=== PATIENT | female | born 1950 | race Two or more races ===

== ENCOUNTER 2016-08-15 12:01 | Emergency (ER) | payer MEDICARE ==
[2016-08-15 12:08] VITALS: TEMP 98.1; BMI 27.8
[2016-08-15] MEDS ORDERED: Albuterol/Ipratropium Neb 3 ML NEB NEB ONE (12:22)
[2016-08-15] MEDS ORDERED: METHYLPREDNISOLONE 125 MG/2 ML VIAL IM ONE (12:22)
--- NOTE | 2016-08-15 12:26 | EDPRACDOC ---
- General Information Chief Complaint: Flu-Like Symptoms Stated Complaint: COLD SYMPTOMS C/O WEAKNESS Time Seen by Provider: 08/15/16 12:14 Information Source: Patient Mode Of Arrival: Car Home Medications: Home Medications Albuterol Sulfate [Proair Respiclick] 90 mcg IH QID #1 aer.pow.ba 08/15/16 Azithromycin [Zithromax] 250 mg PO DAILY #6 tablet 08/15/16 Benzonatate [Tessalon] 200 mg PO TID #20 per 08/15/16 Methylprednisolone [Medrol] 4 mg PO DAILY #1 tab.ds.pk 08/15/16 Allergies/Adverse Reactions: Allergies Allergy/AdvReac Type Severity Reaction Status Date / Time diazepam [From Valium] Allergy Anxiety Verified 08/15/16 12:08 - History of Present Illness Onset: 4 DAYS HPI: PT PRESENTS WITH COUGH, CONGESTION, SHOB THAT SHE STATES HAS BEEN ONGOING FOR SEVERAL DAYS. STATES SHE HAS BEEN TRAVELING FOR THE PAST SEVERAL DAYS. DENIES FEVER, CHILLS, NAUSEA OR VOMITING. Shortness of Breath: Mild Relevant History of: Reports: None Cough: Reports: Non-productive Rhinorrhea: Reports: Clear Fever Severity/Quality: Reports: no fever Ear Symptoms: Reports: Earache Oral Intake: Decreased Urinary Output: Normal ED Past Medical History - History Reviewed Yes Nurses notes reviewed and agree except as marked - Patient Medical History Surgical History: Reports: Tonsillectomy/Adnoidectomy EDM Review of Systems - Review of Systems ROS Negative Except as Marked: Yes All systems reviewed and were negative except as marked - Physical Exam Constitutional: Alert Oriented to: Time, Person, Place Last recorded Vital Signs: Last Vital Signs Temp 98.1 F 08/15/16 12:03 Pulse 83 08/15/16 12:03 Resp 20 08/15/16 12:03 BP 190/77 H 08/15/16 12:03 Pulse Ox 98 08/15/16 12:03 Oxygen Pulse Oxygen Saturation 98 O2 Device Room Air Oxygen Flow Rate Fraction of Inspired Oxygen ( FIO2) - HEENT Head: Normal ( normocephalic) Eye Exam: Normal (PERRL, EOMI, Sclera white) Oropharynx: Normal (Pharynx:Moist without exudate,Gums-no swelling) Tympanic Membrane: Redness Nose: No Symptoms Reported (septum midline) Neck: Normal (FROM, trachea at midline) - Respiratory/Cardiovascular Respiratory: Rhonchi, Wheezes Cardiovascular: Normal (RRR without murmur, gallop or rub) - GI Auscultation: Normal (NABS) Palpation: Normal (Soft,No rebound or guarding, non distended) Tenderness: Non tender Figueroa's Sign: Negative Rectal Exam: Deferred - Musculoskeletal Back: Normal (Non-Tender) Extremities: Normal (Normal tone, Pulses 2+ No cyanosis or edema, FROM) - Integumentary Skin: Normal, Warm, Dry Lymphatics: Normal (no adenopathy) - Neurologic Memory Impaired: Normal Motor Function: Normal (Normal tone, Pulses 2+ No cyanosis or edema, FROM) Cranial Nerve: Normal (CN II-X11 intact sensation, strength 5/5) Cerebellar: Normal Mood Description: Normal Perception: Normal - Differential Diagnosis Bronchitis, URI, Viral Decision Time to Discharge: 13:31 - Departure Disposition: Home Condition: Stable Final Diagnosis: Acute bronchitis Instructions: Acute Bronchitis (ED) Education/Counseling Given To: Patient Education/Counseling Given Regarding: Diagnosis, Treatment, Prognosis, Follow Up Referrals: Rasta Stock MD [Staff Physician] - One Week Prescriptions: Albuterol Sulfate [Proair Respiclick] 90 mcg IH QID #1 aer.pow.ba Azithromycin [Zithromax] 250 mg PO DAILY #6 tablet Benzonatate [Tessalon] 200 mg PO TID #20 per Methylprednisolone [Medrol] 4 mg PO DAILY #1 tab.ds.pk Additional Instructions: INCREASE FLUID INTAKE. FOLLOW UP WITH PRIMARY CARE PROVIDER NEXT WEEK. TAKE ALL ANTIBIOTICS PRESCRIBED. RETURN TO THE ED FOR WORSENING SYMPTOMS OR CONCERNS.
[2016-08-15 12:57] VITALS: PULSE 82
--- NOTE | 2016-08-15 13:24 | DIRPT ---
CLINICAL DATA: Four-day history of cough, congestion and wheezing. EXAM: CHEST 2 VIEW COMPARISON: None. FINDINGS: The cardiac silhouette, mediastinal and hilar contours are normal. Mild bronchitic lung changes suggesting bronchitis. No infiltrates or effusions. The bony thorax is intact. IMPRESSION: Mild bronchitic changes but no infiltrates or effusions. Electronically Signed By: Nancy Osuna M.D. On: 08/15/2016 13:21
[2016-08-15 14:08] VITALS: BP 171/72
== END 2016-08-15 13:40 | disposition home or self-care (01) ==
LOC: EDMC 12:01
DX: J20.9 Acute bronchitis, unspecified (principal)
CPT/HCPCS: 71020; 87804; 94640; 99283; J2930; J7620